=== PATIENT | male | born 1985 | race American Indian/Alaskan Native ===

== ENCOUNTER 2021-06-16 08:35 | Emergency (ER) | payer OTHER ==
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
[2021-06-16] MEDS ORDERED: ACETAMINOPHEN 325 MG TAB PO ONE (12:09)
[2021-06-16] MEDS ORDERED: IBUPROFEN 600 MG TAB PO ONE (12:09)
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
[2021-06-16 13:51] VITALS: BP 129/86
== END 2021-06-16 13:50 | disposition home or self-care (01) ==
LOC: ED 08:35
DX: S16.1XXA Strain of muscle, fascia and tendon at neck level, initial encounter (principal); Z88.2 Allergy status to sulfonamides; S66.911A Strain of unspecified muscle, fascia and tendon at wrist and hand level, right hand, initial encounter; V89.2XXA Person injured in unspecified motor-vehicle accident, traffic, initial encounter; Y93.89 Activity, other specified; Y92.89 Other specified places as the place of occurrence of the external cause; Y99.8 Other external cause status
CPT/HCPCS: 72125; 99284